=== PATIENT | male | born 1955 | race Caucasian/White ===

== ENCOUNTER 2017-01-05 17:52 | Emergency (ER) | payer BC, SELFPAY ==
[2017-01-05] MEDS ORDERED: Sodium Chloride 0.9% 10 ML Syringe FLUSH PRN (18:08)
[2017-01-05] MEDS ORDERED: HYDROmorphone 1 MG/ML Syringe IVPUSH ONE (18:08)
[2017-01-05] MEDS ORDERED: fentaNYL 100 MCG/2 ML SDV IVPUSH ONE (18:19)
[2017-01-05] MEDS ORDERED: Midazolam 1 MG/ML 2 ML SDV IVPUSH ONE ×2 (18:19→19:14)
[2017-01-05] MEDS ORDERED: Midazolam 1 MG/ML 2 ML SDV ONE (19:08)
--- NOTE | 2017-01-05 19:17 | EDM.PDOC ---
ED HPI GENERAL MEDICAL PROBLEM - General Chief Complaint: Upper Extremity Injury/Pain Stated Complaint: L SHOULDER INJURY Time Seen by Provider: 01/05/17 18:04 Source of Information: Reports: Patient History Limitations: Reports: No Limitations - History of Present Illness INITIAL COMMENTS - FREE TEXT/NARRATIVE: The patient presents with left shoulder dislocation. He was shutting the marsh of his truck and his left shoulder dislocated. This is the 3rd time this has happened. He has seen Dr Funk in the past and he said 1 more time and he may need surgery. He has some numbness to he distal arm but not over the deltoid. He is right handed. Onset: Today, Sudden Duration: Minutes: Location: Reports: Upper Extremity, Left (shoulder) Quality: Reports: Sharp Severity: Moderate Improves with: Reports: None Worsens with: Reports: Movement Associated Symptoms: Reports: No Other Symptoms Left Shoulder Pain Score (Numeric/FACES): 9 - Related Data Allergies Allergy/AdvReac Type Severity Reaction Status Date / Time No Known Allergies Allergy Verified 01/05/17 17:58 Home Meds: Home Meds oxyCODONE HCl/Acetaminophen [Percocet 5-325 mg Tablet] 1 - 2 each PO Q6HR PRN # 20 tablet 01/05/17 [Rx] Past Medical History - Past Surgical History Other Musculoskeletal Surgeries/Procedures:: left shoulder dislocation 1 year ago(2013) Social & Family History - Tobacco Use Smoking Status *Q: Current Every Day Smoker Years of Tobacco use: 30 Packs/Tins Daily: 0.5 Second Hand Smoke Exposure: Yes - Alcohol Use Days Per Week of Alcohol Use: 7 Number of Drinks Per Day: 2 Total Drinks Per Week: 14 - Recreational Drug Use Recreational Drug Use: No Review of Systems - Review of Systems Review Of Systems: See Below Constitutional: Reports: No Symptoms Eyes: Reports: No Symptoms Ears: Reports: No Symptoms Nose: Reports: No Symptoms Mouth/Throat: Reports: No Symptoms Respiratory: Reports: No Symptoms Cardiovascular: Reports: No Symptoms GI/Abdominal: Reports: No Symptoms Genitourinary: Reports: No Symptoms Musculoskeletal: Reports: Other (Left shoulder dislocation) ED EXAM, GENERAL - Physical Exam Exam: See Below Exam Limited By: No Limitations General Appearance: Alert, No Apparent Distress Ears: Normal External Exam Nose: Normal Inspection Head: Atraumatic, Normocephalic Neck: Normal Inspection Respiratory/Chest: No Respiratory Distress, Lungs Clear, Normal Breath Sounds Cardiovascular: Regular Rate, Rhythm, No Edema, No Murmur GI/Abdominal: Soft, Non-Tender, No Organomegaly, No Mass Extremities: Other (Deformity to the left shoulder. Numbness to the distal arm but good pulses. He can move his fingers.) ED TRAUMA EXTREMITY PROCEDURES - Joint Reduction Site: Shoulder (L) Sedation: Conscious Cedation Pre-Procedure NV Status: Abnormal (Numbness to the distal arm) Post-Procedure NV Status: Abnormal (Numbness has improved) Technique: Traction/Counter Traction Number of Attempts: 1 Post-Reduction Imaging: Completely Reduced, No Fracture Seen Joint Reduction Complications: No Course - Vital Signs Last Recorded V/S: Last Vital Signs Temp 98.8 F 01/05/17 17:56 Pulse 70 01/05/17 17:56 Resp 16 01/05/17 17:56 BP Pulse Ox 96 01/05/17 17:56 - Orders/Labs/Meds Orders: Active Orders 24 hr Category Date Time Status Peripheral IV Care [RC] . DIRECTED Care 01/05/17 18:08 Active Shoulder 1V Lt [CR] Stat Exams 01/05/17 19:10 Ordered Shoulder Comp Lt [CR] Stat Exams 01/05/17 18:08 Taken Sodium Chloride 0.9% [Saline Flush] Med 01/05/17 18:08 Active 10 ml FLUSH ASDIRECTED PRN Peripheral IV Insertion Adult [OM.PC] Routine Oth 01/05/17 18:08 Ordered Medication Orders Sodium Chloride (Saline Flush) 10 ml FLUSH ASDIRECTED PRN PRN Reason: Keep Vein Open Last Admin: 01/05/17 18:27 Dose: 10 ml Meds: Medications Generic Name Dose Route Start Last Admin Trade Name Freq PRN Reason Stop Dose Admin Sodium Chloride 10 ml 01/05/17 18:08 01/05/17 18:27 Saline Flush FLUSH 10 ml ASDIRECTED PRN Administration Keep Vein Open Discontinued Medications Generic Name Dose Route Start Last Admin Trade Name Freq PRN Reason Stop Dose Admin Fentanyl 100 mcg 01/05/17 18:19 01/05/17 18:27 Sublimaze IVPUSH 01/05/17 18:20 100 mcg ONETIME ONE Administration Hydromorphone HCl 1 mg 01/05/17 18:08 01/05/17 18:27 Dilaudid IVPUSH 01/05/17 18:09 1 mg ONETIME ONE Administration Midazolam HCl 2 mg 01/05/17 18:19 01/05/17 18:27 Versed 1 Mg/Ml IVPUSH 01/05/17 18:20 2 mg ONETIME ONE Administration Midazolam HCl Confirm 01/05/17 19:08 Versed 1 Mg/Ml Administered 01/05/17 19:09 Dose 2 mg .ROUTE .K-MED ONE - Re-Assessments/Exams Free Text/Narrative Re-Assessment/Exam: 01/05/17 19:15 I ordered an IV saline lock, dilaudid 1mg IV and an x-ray. The x-ray confirmed a dislocation of his left shoulder. I confirmed this with an x-ray. I used a total of 4mg of versed and 100mcg of fentanyl to reduce his shoulder. There were no complications. He does have some numbness to the distal arm. I will get him in a shoulder immobilizer, percocet for pain and follow up with Dr Funk. Departure - Departure Time of Disposition: 19:20 Disposition: Home, Self-Care 01 Condition: Good Clinical Impression: Dislocation of left shoulder joint Qualifiers: Encounter type: initial encounter Qualified Code(s): S43.005A - Unspecified dislocation of left shoulder joint, initial encounter - Discharge Information Prescriptions: oxyCODONE HCl/Acetaminophen [Percocet 5-325 mg Tablet] 1 - 2 each PO Q6HR PRN # 20 tablet PRN Reason: Pain Referrals: Farooq Funk MD [Physician] - 1 Week Forms: ED Department Discharge Additional Instructions: Ice your shoulder for 15 minutes every other hour while awake for 2 days. Wear the shoulder immobilizer for comfort. Take the percocet as needed for pain or you can take motrin or aleve. Follow up with Dr Funk within the week. Call his office tomorrow. Please return if you are worse. - My Orders Last 24 Hours: My Active Orders 01/05/17 18:08 Peripheral IV Care [RC] . DIRECTED Shoulder Comp Lt [CR] Stat Sodium Chloride 0.9% [Saline Flush] 10 ml FLUSH ASDIRECTED PRN Peripheral IV Insertion Adult [OM.PC] Routine 01/05/17 19:10 Shoulder 1V Lt [CR] Stat - Assessment/Plan Last 24 Hours: My Active Orders 01/05/17 18:08 Peripheral IV Care [RC] . DIRECTED Shoulder Comp Lt [CR] Stat Sodium Chloride 0.9% [Saline Flush] 10 ml FLUSH ASDIRECTED PRN Peripheral IV Insertion Adult [OM.PC] Routine 01/05/17 19:10 Shoulder 1V Lt [CR] Stat
[2017-01-05 19:25] VITALS: BP 103/71
--- NOTE | 2017-01-06 08:39 | CR ---
Left shoulder: Single AP view of the left shoulder was obtained. Comparison: Previous left shoulder study performed earlier on the same day (6:34 PM). Degenerative change again seen within the acromioclavicular joint. Small Hill-Sachs deformity is seen. Glenohumeral alignment is normal. Previous dislocation has been reduced. Impression: 1. Previous dislocation has been reduced. 2. Other portions of the left shoulder exam are stable. Diagnostic code #2
--- NOTE | 2017-01-06 08:39 | CR ---
Left shoulder: Three views of the left shoulder were obtained. Comparison: Previous shoulder study of 05/14/15. Joint space narrowing is seen within the acromioclavicular joint with inferior and superior spurring also noted within the acromioclavicular joint. Anterior dislocation is seen within the glenohumeral joint. Small Hill-Sachs deformity is seen. Impression: 1. Anterior dislocation, other incidental findings. Diagnostic code #3
== END 2017-01-05 20:39 | disposition home or self-care (01) ==
LOC: JD.ED 17:52
DX: S43.005A Unspecified dislocation of left shoulder joint, initial encounter (principal); F17.210 Nicotine dependence, cigarettes, uncomplicated; X58.XXXA Exposure to other specified factors, initial encounter; Y93.89 Activity, other specified
CPT/HCPCS: 23650; 73020; 73030; 96374; 96375; 99284; J1170; J2250; J3010; J7050

== ENCOUNTER → 2017-04-19 | Day surgery (SDC) | payer BC, SELFPAY ==
[~2017-04-19] MED LIST: Acetaminophen/oxyCODONE 325-5 MG Tab PO PRN; EPINEPHrine 1 MG/ML 30 ML MDV ONE; EPINEPHrine 1 MG/ML SDV ONE; HYDROmorphone 0.5 MG/0.5 ML Syringe IVPUSH PRN; Ketorolac 15 MG/ML SDV IVPUSH PRN; Labetalol 100 MG/20 ML MDV ONE; Lactated Ringers 1,000 ML IV SCH; Lactated Ringers 1,000 ML ONE; Lidocaine 1% 6 ML ONE; Lidocaine 1%/Sod Bicarbonate in NS 8.4% 1 ML Syringe IV PRN; Midazolam 1 MG/ML 2 ML SDV ONE; Morphine 15 MG Tab.ER PO SCH; Ondansetron 4 MG/2 ML SDV IVPUSH PRN; Ondansetron 4 MG/2 ML SDV ONE; Propofol 200 MG/20 ML SDV ONE; Rocuronium 50 MG/5 ML Vial ONE; Ropivacaine 0.5% 5 MG/ML 30 ML SDV ONE; Sodium Chloride 0.9% 10 ML Syringe FLUSH PRN; ceFAZolin 1 GM Vial ONE; fentaNYL 100 MCG/2 ML SDV IVPUSH PRN; fentaNYL 100 MCG/2 ML SDV ONE; fentaNYL 250 MCG/5 ML SDV ONE
--- NOTE | 2017-04-19 07:16 | PCM.PREANE ---
Preanesthetic Assessment - Anesthesia/Transfusion/Family Hx Anesthesia History: Prior Anesthesia Without Reaction Family History of Anesthesia Reaction: No Transfusion History: No Prior Transfusion(s) - Review of Systems General: No Symptoms Pulmonary: Cough Cardiovascular: No Symptoms Gastrointestinal: No Symptoms Neurological: Numbness (left hand) Other: Reports: None - Physical Assessment NPO Status Date: 04/18/17 NPO Status Time: 20:00 Pulse: 85 O2 Sat by Pulse Oximetry: 99 Respiratory Rate: 16 Blood Pressure: 153/97 Temperature: 36.5 C Vital Signs: Last Vital Signs Temp 36.5 C 04/19/17 06:50 Pulse 85 04/19/17 06:50 Resp 16 04/19/17 06:50 BP 153/97 H 04/19/17 06:50 Pulse Ox 99 04/19/17 06:50 Height: 1.7 m Weight: 58.513 kg ASA Class: 2 Mental Status: Alert & Oriented x3 Airway Class: Mallampati = 1 Dentition: Reports: [place](s), Broken Tooth/Teeth, Caries Thyro-Mental Finger Breadths: 3 Mouth Opening Finger Breadths: 3 ROM/Head Extension: Full Lungs: Clear to Auscultation, Normal Respiratory Effort Cardiovascular: Regular Rate, Regular Rhythm, No Murmurs - Lab Values: on chart - Imaging/EKG Impressions: on chart - Allergies Allergies/Adverse Reactions: Allergies Allergy/AdvReac Type Severity Reaction Status Date / Time No Known Allergies Allergy Verified 04/18/17 15:18 - Blood Blood Available: No Product(s) Available: None - Anesthesia Plan Pre-Op Medication Ordered: None - Acknowledgements Anesthesia Type Planned: General Anesthesia, Regional Block (interscaline block for post-op pain control) Pt an Appropriate Candidate for the Planned Anesthesia: Yes Alternatives and Risks of Anesthesia Discussed w Pt/Guardian: Yes Pt/Guardian Understands and Agrees with Anesthesia Plan: Yes PreAnesthesia Questionnaire Cardiovascular History: Reports: None Respiratory History: Reports: Sleep Apnea Gastrointestinal History: Reports: None Genitourinary History: Reports: None CONTRACTING EXECUTIVE History: Reports: None Musculoskeletal History: Reports: Other (See Below) Other Musculoskeletal History: ac joint bone spurs, left cubital tunnel syndrome , left shoulder dislocation, left rotator cuff impingement Neurological History: Reports: Brain Injury Psychiatric History: Reports: None Endocrine/Metabolic History: Reports: None Hematologic History: Reports: None Immunologic History: Reports: None Oncologic (Cancer) History: Reports: None Dermatologic History: Reports: None - Past Surgical History HEENT Surgical History: Reports: Tonsillectomy Cardiovascular Surgical History: Reports: Aneurysm Respiratory Surgical History: Reports: None GI Surgical History: Reports: Colonoscopy Female Surgical History: Reports: None Male Surgical History: Reports: None Endocrine Surgical History: Reports: None Neurological Surgical History: Reports: Other (See Below) Other Neurological Surgeries/Procedures: brain/skull surgery 1990 Musculoskeletal Surgical History: Reports: Shoulder Surgery Oncologic Surgical History: Reports: None Dermatological Surgical History: Reports: None - SUBSTANCE USE Smoking Status *Q: Current Every Day Smoker Second Hand Smoke Exposure: Yes Days Per Week of Alcohol Use: 7 Number of Drinks Per Day: 2 Total Drinks Per Week: 14 Recreational Drug Use History: No - HOME MEDS Home Medications: Home Meds Ascorbate Calcium [Vitamin C] 500 mg PO DAILY 04/18/17 [History] Hydrocodone/Acetaminophen [Hydrocodon-Acetaminophen 5-325] 1 - 2 tab PO Q4H PRN 04/18/17 [History] Pyridoxine HCl [Vitamin B-6] 100 mg PO DAILY 04/18/17 [History] - CURRENT (IN HOUSE) MEDS Current Meds: Current Medications Lactated Ringer's (Ringers, Lactated) 1,000 mls @ 125 mls/hr IV ASDIRECTED RAYMOND Last Admin: 04/19/17 07:00 Dose: 125 mls/hr Lidocaine/Sodium Bicarbonate (Buffered Lidocaine 1% In Ns 8.4%) 0.25 ml IV ONETIME PRN PRN Reason: Prior to IV Start Last Admin: 04/19/17 07:00 Dose: 0.25 ml Sodium Chloride (Saline Flush) 10 ml FLUSH ASDIRECTED PRN PRN Reason: Keep Vein Open Discontinued Medications Cefazolin Sodium (Ancef) Confirm Administered Dose 2 gm .ROUTE .STK-MED ONE Stop: 04/19/17 07:01 Epinephrine HCl (Adrenalin 1:1000) Confirm Administered Dose 1 mg .ROUTE .STK- MED ONE Stop: 04/19/17 06:50 Fentanyl (Sublimaze) Confirm Administered Dose 100 mcg .ROUTE .STK-MED ONE Stop: 04/19/17 06:49 Lidocaine HCl (Xylocaine-Mpf 1%) Confirm Administered Dose 6 mls @ as directed .ROUTE .STK-MED ONE Stop: 04/19/17 06:50 Midazolam HCl (Versed 1 Mg/Ml) Confirm Administered Dose 2 mg .ROUTE .STK-MED ONE Stop: 04/19/17 06:50 Ondansetron HCl (Zofran) Confirm Administered Dose 4 mg .ROUTE .STK-MED ONE Stop: 04/19/17 06:49 Propofol (Diprivan 20 Ml) Confirm Administered Dose 200 mg .ROUTE .STK-MED ONE Stop: 04/19/17 06:49 Rocuronium [place] (Zemuron) Confirm Administered Dose 50 mg .ROUTE .STK-MED ONE Stop: 04/19/17 06:49 Ropivacaine (Naropin 0.5%) Confirm Administered Dose 30 ml .ROUTE .STK-MED ONE Stop: 04/19/17 06:51
[2017-04-19] MEDS: Bupivacaine 0.5%/EPINEPHrine 1:200,000 50 ML MDV ONE ×2 (09:02→10:30)
--- NOTE | 2017-04-19 11:00 | PCM.POSTAN ---
POST ANESTHESIA ASSESSMENT - MENTAL STATUS Mental Status: Alert, Oriented - VITAL SIGNS Pulse Rate: 85 SaO2: 97 Resp Rate: 10 Blood Pressure: 119/87 Temperature: 36.2 C - RESPIRATORY Respiratory Status: Respiratory Rate WNL, Airway Patent, O2 Saturation Stable, Supplemental Oxygen - CARDIOVASCULAR CV Status: Pulse Rate WNL, Blood Pressure Stable - GASTROINTESTINAL GI Status: No Symptoms - PAIN Pain Score: 0 - POST OP HYDRATION Hydration Status: Adequate & Stable - OBSERVATIONS Free Text/Narrative:: no anesthesia complications noted
--- NOTE | 2017-04-19 11:17 | PCM.SN ---
- Free Text/Narrative Note: Note: 04/19/2017 1114 142/70 85 97% 16 Surgeon and pt request post-op pain control for left shoulder surgery risk of block failure, facial numbness, site infection, and chronic pain discussed with pt and agreed to proceed. All standard monitors est. EKG, BP, Pulse Ox, 2ml O2 and 2ml versed, 2ml fentanyl pre-op dx. left shoulder pain post-op dx left shoulder arthroscopy pt for interscalene block placement all standard monitors est. pt ID time out performed IV sedation 2ml versed, 2ml fentanyl, 2L NC O2, sterile prep and drape of left neck and shoulder U/S placed with visualization of brachial plexus from clavicle to cricoid local skin infiltration 22ga. Stimplex A insulated needle visualized at brachial plexus nerve stimulator at .9 Zohra Amps stop at .4 Zohra Amps with good bicep twitch with 1ml NaCl and lose of twitch neg aspirations every 5ml of 0.5% ropivacaine and 1:200,000 epi total of 30ml injected all done with U/S guidance needle withdrawn no complications noted pt tolerated procedure well block settling in start procedure at 0725 end procedure at 0739 115/80 78 100% 14
[2017-04-19 12:52] VITALS: BP 125/87
--- NOTE | 2017-04-19 17:29 | OR ---
DATE OF OPERATION: 04/19/2017 SURGEON: Farooq Funk MD PREOPERATIVE DIAGNOSIS: Left shoulder internal derangement. POSTOPERATIVE DIAGNOSIS: 1. 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 2. Tear, rotator cuff, left shoulder. 3. Torn glenoid labrum complex and intra-articular adhesions, left shoulder. ANESTHESIA: General. OPERATION PERFORMED: 1. Left shoulder arthroscopic debridement, removal of fibrous adhesions and glenoid labral tear. 2. Arthroscopic partial acromionectomy, left shoulder. 3. Arthroscopic distal clavicle resection, left shoulder. 4. A mini open left shoulder rotator cuff repair. DESCRIPTION OF PROCEDURE: The patient was taken to the operating room in supine position, was placed under general anesthesia. He was then placed in the sitting position for an arthroscopic operative approach to the left shoulder. Once the patient was positioned, the left shoulder was then prepped and draped by standard technique and the procedure began with the incision being placed in anatomical soft spot behind the left shoulder posteriorly. Instrumentation was placed into the shoulder joint and then an anterior portal was developed. On general inspection, the subscapularis was intact. There was fraying and complex tearing of the glenoid labrum extending anteriorly underneath the biceps tendon and posteriorly. This whole area was then trimmed out creating a nice smooth surface. There were several fibrous adhesions present about the biceps tendon anteriorly which were removed. The biceps tendon was firmly attached to the glenoid and exited through the foramen. No tears were identified. Evaluation by palpation of the right rotator cuff found a positive tear of the rotator cuff and coming off the greater tuberosity. Once the internal structure and surgery of the portion of the shoulder joint was carried out intra-articularly, the operation then proceeded with removal of the arthroscope placed in the subacromial space. A lateral portal was then developed. A bursectomy was then carried out. Once that was completed, the identification of the acromion was made and also the AC joint clavicle. There was severe spur formations in the inferior aspect of the acromion and clavicle at the AC joint. There was an extended spur formation anterolateral coming off the acromion. The operation then proceeded with the acromionectomy partially using the arthroscope, creating a nice flat surface. Once that was completed, the AC joint resection was then carried out with the Marito procedure, removing the distal portion of the clavicle, creating an open area for the movement of the AC joint on recovery. Once that was completed, the final inspection was carried out to make sure there were no bone fragments remained in the superior portion of the capsule, AC joint, or posteriorly and once that was satisfied, the area of opening now was approximately 7 mm. The AC joint and the acromion were decompressed significantly to remove pressure off the rotator cuff. On the exterior portion of the rotator cuff attachment to the greater tuberosity probing, identified the tear area. This was a [place] type tear. Once that was identified, the operation then proceeded with a spinal needle and the needle was then used to leda the area of the rotator cuff tear. The instruments were then removed from the shoulder joint on the arthroscopic portion and the operation proceeded with a mini open rotator cuff repair. Approximately, a 2 cm incision was used penetrating through the skin. The deltoid was then split and then the rotator cuff tear, which showed fibrous edges were then trimmed, smoothed to more of a bleeding type edge. It was opted to go with an Opus repair; 2 Opus anchors were used with a #2 FiberWire, bringing the torn end down onto the greater tuberosity after that had been freshened to a bleeding surface. Once secured, it was palpated, found to be nice and smooth. The operation proceeded with palpation of the undersurface of the acromion. No bone spurs. The acromion was nice and smooth to palpation. The area was then thoroughly irrigated. The deltoid interval was then closed with #1 Vicryl, subcutaneous tissue 2-0 Vicryl, and all incisions were closed with skin kavita. The patient tolerated the whole procedure well. He left the operating room in stable condition to his room for recovery. ESTIMATED BLOOD LOSS: [facility] /[id number]
== END | disposition home or self-care (01) ==
LOC: JD.SDS 06:36
PROVIDERS: ATTEND Specialist
DX: M19.012 Primary osteoarthritis, left shoulder (principal); M75.102 Unspecified rotator cuff tear or rupture of left shoulder, not specified as traumatic; S43.402A Unspecified sprain of left shoulder joint, initial encounter; M75.02 Adhesive capsulitis of left shoulder; M75.42 Impingement syndrome of left shoulder; M75.82 Other shoulder lesions, left shoulder; F17.210 Nicotine dependence, cigarettes, uncomplicated; Z79.891 Long term (current) use of opiate analgesic
CPT/HCPCS: 23410; 29823; 29824; 93005; J0171; J0690; J2250; J2405; J2795; J3010; J7120; 01638; 64415; J2704